=== PATIENT | female | born 1980 | race Caucasian/White ===

== ENCOUNTER 2021-09-16 10:10 | Emergency (ER) | payer SELFPAY ==
[2021-09-16] MEDS ORDERED: Tetracaine 0.5% PF 4 ML BOT ONE (10:28)
[2021-09-16] MEDS ORDERED: Fluorescein Opthalmic Strip ONE (10:28)
== END 2021-09-16 10:42 | disposition home or self-care (01) ==
LOC: BURERS 10:10
DX: S05.12XA Contusion of eyeball and orbital tissues, left eye, initial encounter (principal); S05.02XA Injury of conjunctiva and corneal abrasion without foreign body, left eye, initial encounter; Z87.891 Personal history of nicotine dependence; W22.8XXA Striking against or struck by other objects, initial encounter
CPT/HCPCS: 99283